=== PATIENT | male | born 1990 | race Caucasian/White ===

== ENCOUNTER → 2021-11-06 | Emergency (ER) | payer OTHER ==
[~2021-11-06] VITALS: Ht 185.4 cm; Wt 122.5 kg
[~2021-11-06] MED LIST: CEPH500T PO
--- NOTE | 2021-11-06 18:20 | NUR ---
PT SEEN BY [employer] AT BEDSIDE.
--- NOTE | 2021-11-06 18:29 | NUR ---
WOUND CARE DONE AT BEDSIDE.
--- NOTE | 2021-11-06 18:32 | NUR ---
[employer] AT BEDSIDE. PER OFFICER, THEY ARE JUST WAITING FOR THE INCOMING OFFICERS TO WRITE THE TICKET AND THEN HE WILL BE RELEASED FROM THEIR CUSTODY.
[2021-11-06 18:49] VITALS: BP 136/88
--- NOTE | 2021-11-06 18:50 | NUR ---
Patient discharged to law enforcement, home in stable condition. Written and verbal after care instructions given. Patient verbalizes understanding of instruction.
== END ==
LOC: ER 17:35
DX: Z02.89 Encounter for other administrative examinations (principal); F42.4 Excoriation (skin-picking) disorder; L98.9 Disorder of the skin and subcutaneous tissue, unspecified; G40.909 Epilepsy, unspecified, not intractable, without status epilepticus
CPT/HCPCS: 99283; A6403

== ENCOUNTER 2024-06-27 04:59 | Inpatient (IN) | payer MEDICAID ==
[~2024-06-27] VITALS: Ht 182.9 cm; Wt 127.5 kg
[~2024-06-27 04:59] MED LIST changes: +NALO4SPR BNOSTRILS
[2024-06-27] MEDS ORDERED: CLINDAMYCIN HCL 150 MG CAPSULE ONE (06:11)
[2024-06-27] MEDS: CLINDAMYCIN HCL 150 MG CAPSULE PO ONE (06:18)
[2024-06-27] MEDS ORDERED: CLIN150C16 PO (06:21)
[2024-06-27] MEDS ORDERED: PIPERACI/TAZO 3.375GM/D5W 50ML PB IV ONE (06:27)
[2024-06-27] MEDS ORDERED: VANCOMYCIN 1 GM /D5W 250 ML PB IV ONE (06:27)
[2024-06-27 06:52] LABS: BASOPHILS % (AUTO) 0.6 % (0.0-2.0); EOSINOPHILS % (AUTO) 0.7 % (0.0-6.0); HEMATOCRIT 26 % (39-51); HEMOGLOBIN 8.1 g/dL (13.5-17.5); LYMPHOCYTES # (AUTO) 0.9 K/uL (0.8-4.8); LYMPHOCYTES % (AUTO) 25.8 % (20.0-44.0); MEAN CORPUSCULAR HEMOGLOBIN 22 PG (26.0-33.0); MEAN CORPUSCULAR HGB CONC 31 g/dl (31.0-36.0); MEAN CORPUSCULAR VOLUME 71 fL (80-96); MONOCYTES # (AUTO) 0.5 K/uL (0.1-1.30); MONOCYTES % (AUTO) 14.6 % (2.0-12.0); NEUTROPHILS # (AUTO) 2.1 K/uL (1.8-8.9); NEUTROPHILS % (AUTO) 58.3 % (43.0-81.0); PLATELET COUNT (AUTO) 253 K/uL (150-450); RED BLOOD CELL COUNT(AUTO) 3.63 MIL/uL (4.5-6.0); RED CELL DISTRIBUTION WIDTH 18.9 % (11.5-15.0); WHITE BLOOD COUNT (AUTO) 3.7 K/uL (4.3-11.0)
[2024-06-27 07:07] LABS: BILIRUBIN,TOTAL 0.5 mg/dL (0.2-1.0); CALCIUM, SERUM 8.6 mg/dL (8.5-10.1); CREATININE 0.8 mg/dL (0.6-1.3); POTASSIUM 3.9 mmol/L (3.5-5.1); TOTAL PROTEIN, SERUM 7.6 g/dL (6.4-8.2)
[2024-06-27] MEDS: PIPERACILLIN /TAZOBACTAM 3.375 G in IV D5W 50 ML IV ONE (07:20)
[2024-06-27] MEDS ORDERED: CT SWABBABLE VALVE TRANS SET 1 EA INFUS.SET MC ONE (07:33)
[2024-06-27] MEDS ORDERED: IOHEXOL-300 100 ML VIAL IV ONE (07:33)
[2024-06-27] MEDS ORDERED: IV NS 0.9% 250 ML IV ONE (07:34)
[2024-06-27] MEDS ORDERED: MORPHINE SULFATE INJ 4 MG/ML DISP.SYRIN ONE (07:45)
[2024-06-27 07:59] LABS: EOSINOPHILS % (MANUAL) 1 % (0-4); LYMPHOCYTES % (MANUAL) 14 % (16-48); MONOCYTES % (MANUAL) 6 % (0-11.0); NEUTROPHILS % (MANUAL) 29 (42-76); PLATELET ESTIMATE ADEQUATE
[2024-06-27 08:00] LABS: ANISOCYTOSIS 1+; OVALOCYTES 1+
[2024-06-27] MEDS: MORPHINE SULFATE INJ 2 MG/ML DISP.SYRIN IV ONE (09:00)
[2024-06-27] MEDS: VANCOMYCIN 1 GM in IV D5W 250 ML IV ONE (09:05)
[2024-06-27] MEDS ORDERED: Z GUARD REMEDY 4 OZ OINT TP PRN (10:30)
[2024-06-27] MEDS ORDERED: MAG HYDROX/AL HYDROX/SIMETH 30 ML UDC PO PRN (10:30)
[2024-06-27] MEDS ORDERED: ONDANSETRON HCL/PF 4 MG/2 ML VIAL IVP PRN (10:30)
[2024-06-27] MEDS ORDERED: MAGNESIUM HYDROXIDE 30 ML UDC PO PRN (10:30)
[2024-06-27] MEDS ORDERED: ACETAMINOPHEN 325 MG TABLET PO PRN (10:30)
[2024-06-27] MEDS: ZOSYN IVPB 3.375 G in IV D5W 50ml IV SCH (12:48)
[2024-06-27] MEDS: ENOXAPARIN SODIUM 40 MG/0.4 ML DISP.SYRIN SQ SCH (12:49)
[2024-06-27] MEDS: MORPHINE SULFATE INJ 4 MG/ML DISP.SYRIN IV PRN (16:05)
[2024-06-27 16:30] VITALS: BP 156/61; TEMP 98.1; O2SAT 97
[2024-06-27] MEDS: VANCOMYCIN HCL 1.25 GM in IV D5W 250 ML IV SCH (16:53)
[2024-06-27 20:00] VITALS: BP 100/50; TEMP 98.2; O2SAT 98
[2024-06-28] MEDS: ZOLPIDEM TARTRATE 5 MG TABLET PO PRN (01:35)
[2024-06-28] MEDS: HYDROMORPHONE 1 MG/1 ML DISP.SYRIN IV PRN ×2 (05:50→20:40)
[2024-06-28 06:49] LABS: BASOPHILS % (AUTO) 0.2 % (0.0-2.0); EOSINOPHILS % (AUTO) 0.7 % (0.0-6.0); HEMATOCRIT 26 % (39-51); HEMOGLOBIN 8.2 g/dL (13.5-17.5); LYMPHOCYTES # (AUTO) 0.8 K/uL (0.8-4.8); LYMPHOCYTES % (AUTO) 18.7 % (20.0-44.0); MEAN CORPUSCULAR HEMOGLOBIN 22 PG (26.0-33.0); MEAN CORPUSCULAR HGB CONC 32 g/dl (31.0-36.0); MEAN CORPUSCULAR VOLUME 71 fL (80-96); MONOCYTES # (AUTO) 0.5 K/uL (0.1-1.30); MONOCYTES % (AUTO) 10.8 % (2.0-12.0); NEUTROPHILS # (AUTO) 2.9 K/uL (1.8-8.9); NEUTROPHILS % (AUTO) 69.6 % (43.0-81.0); PLATELET COUNT (AUTO) 217 K/uL (150-450); RED BLOOD CELL COUNT(AUTO) 3.65 MIL/uL (4.5-6.0); RED CELL DISTRIBUTION WIDTH 19.3 % (11.5-15.0); WHITE BLOOD COUNT (AUTO) 4.2 K/uL (4.3-11.0)
[2024-06-28 07:41] LABS: CALCIUM, SERUM 8.9 mg/dL (8.5-10.1); CREATININE 0.6 mg/dL (0.6-1.3); MAGNESIUM 2.1 mg/dL (1.8-2.4); PHOSPHORUS 4.3 mg/dL (2.5-4.9); POTASSIUM 3.9 mmol/L (3.5-5.1)
[2024-06-28 08:00] VITALS: BP 111/60; TEMP 98.6; O2SAT 94
[2024-06-28] MEDS: THERAHONEY GEL 1.5 OZ TUBE TP SCH (15:33)
[2024-06-28 20:00] VITALS: BP 132/79; TEMP 97.9; O2SAT 99
[2024-06-29 08:00] VITALS: BP 123/90; TEMP 98.6; O2SAT 95
[2024-06-29 11:38] LABS: CALCIUM, SERUM 8.6 mg/dL (8.5-10.1); CREATININE 0.8 mg/dL (0.6-1.3); POTASSIUM 3.6 mmol/L (3.5-5.1)
[2024-06-29] MEDS: POTASSIUM CHLORIDE 10 MEQ TABLET.SA PO SCH (14:18)
[2024-06-29] MEDS: FUROSEMIDE 40 MG TABLET PO SCH (14:18)
[2024-06-29 16:00] VITALS: BP 124/63; TEMP 98.6; O2SAT 100
[2024-06-29 20:00] VITALS: BP 138/71; TEMP 98.4; O2SAT 98
[2024-06-30 07:30] VITALS: BP 133/76; TEMP 97.9; O2SAT 98
[2024-06-30 10:20] LABS: CALCIUM, SERUM 9.6 mg/dL (8.5-10.1); CREATININE 0.9 mg/dL (0.6-1.3); POTASSIUM 3.9 mmol/L (3.5-5.1)
[2024-06-30 16:00] VITALS: BP 118/66; TEMP 98.1; O2SAT 100
[2024-06-30] MEDS ORDERED: IV NS 0.9% 250 ML IV ONE (16:02)
[2024-06-30] MEDS ORDERED: CT SWABBABLE VALVE TRANS SET 1 EA INFUS.SET MC ONE (16:02)
[2024-06-30] MEDS ORDERED: IOHEXOL-300 100 ML VIAL IV ONE (16:02)
[2024-06-30] MEDS: VANCOMYCIN 1 GM in IV D5W 250 ML IV SCH (17:47)
[2024-06-30 20:00] VITALS: BP 128/62; TEMP 97.7; O2SAT 98
[2024-07-01 07:30] VITALS: BP 122/61; TEMP 98.1; O2SAT 100
[2024-07-01 15:50] VITALS: BP 115/64; TEMP 98.1; O2SAT 95
[2024-07-01 20:00] VITALS: BP 107/56; TEMP 97.7; O2SAT 97
[2024-07-01] MEDS: MUPIROCIN OINT 2% 22 GM TUBE NS SCH (21:22)
[2024-07-02 00:50] LABS: CREATININE 0.9 mg/dL (0.6-1.3); POTASSIUM 3.8 mmol/L (3.5-5.1)
[2024-07-02 07:05] LABS: CALCIUM, SERUM 9.5 mg/dL (8.5-10.1); CREATININE 0.7 mg/dL (0.6-1.3); POTASSIUM 4.3 mmol/L (3.5-5.1)
[2024-07-02 08:19] VITALS: BP 116/99; TEMP 98.2; O2SAT 97
[2024-07-02] MEDS: oxyCODONE IR immediate release 5 MG TABLET PO PRN (16:55)
[2024-07-02 16:56] VITALS: BP 111/83; TEMP 98.8; O2SAT 96
[2024-07-02 20:00] VITALS: BP 120/61; TEMP 98.1; O2SAT 97
[2024-07-03 08:00] VITALS: BP 116/75; TEMP 98.4
[2024-07-03] MEDS ORDERED: DOXY-326 PO (12:52)
[2024-07-03] MEDS ORDERED: FURO40TA5 PO (12:52)
[2024-07-03] MEDS ORDERED: COLL30OI TP (12:52)
[2024-07-03 16:00] VITALS: BP 101/64; TEMP 98.4
[2024-07-03 20:00] VITALS: BP 115/59; TEMP 98.8; O2SAT 100
[2024-07-04 08:00] VITALS: BP 118/80; TEMP 98.2; O2SAT 96
== END 2024-07-04 13:00 | disposition home or self-care (01) | DRG 383 ==
LOC: ER 05:02 → MED 08:45
PROVIDERS: ADMIT Internal Medicine; ATTEND Nurse Practitioner Acute Care
DX: L03.116 Cellulitis of left lower limb (principal); I87.2 Venous insufficiency (chronic) (peripheral); F19.10 Other psychoactive substance abuse, uncomplicated; G40.909 Epilepsy, unspecified, not intractable, without status epilepticus; Z59.00 Homelessness unspecified; L03.115 Cellulitis of right lower limb; I89.0 Lymphedema, not elsewhere classified; Z85.47 Personal history of malignant neoplasm of testis; L97.819 Non-pressure chronic ulcer of other part of right lower leg with unspecified severity; L97.829 Non-pressure chronic ulcer of other part of left lower leg with unspecified severity
CPT/HCPCS: 36415; 73701-TC; 74178; 80048-TC; 80053-TC; 80202-TC; 82105; 83605-TC; 83615-TC; 83735-TC; 84100-TC; 84702-TC; 85025-TC; 87040-TC; 87081-TC; 93971-TC; A4223; A6253; A6403; G0378; J1171; J1650; J2270; J2543; J3370; J7030; J7040; J7050; J7060; Q9967

== ENCOUNTER 2024-09-27 00:52 | Emergency (ER) | payer MEDICAID ==
[~2024-09-27] VITALS: Ht 180.3 cm; Wt 90.7 kg
[~2024-09-27 00:52] MED LIST changes: -CEPH500T PO; +COLL30OI TP; +DOXY-326 PO; +FURO40TA5 PO; -NALO4SPR BNOSTRILS
[2024-09-27 02:24] VITALS: BP 110/64; TEMP 98.3; O2SAT 98
[2024-09-27] MEDS ORDERED: AMOX-430 PO (02:58)
[2024-09-27] MEDS ORDERED: AMOX/CLAVULANATE 875 MG TABLET ONE (03:32)
[2024-09-27] MEDS: AMOX/CLAVULANATE 875 MG TABLET PO ONE (03:37)
== END 2024-09-27 04:28 | disposition home or self-care (01) ==
LOC: ER 00:56
DX: I89.0 Lymphedema, not elsewhere classified (principal); I87.339 Chronic venous hypertension (idiopathic) with ulcer and inflammation of unspecified lower extremity; F17.200 Nicotine dependence, unspecified, uncomplicated; F19.11 Other psychoactive substance abuse, in remission; G40.909 Epilepsy, unspecified, not intractable, without status epilepticus; Z79.899 Other long term (current) drug therapy; Z85.47 Personal history of malignant neoplasm of testis